=== PATIENT | male | born 1950 | race Caucasian/White ===

== ENCOUNTER → 2019-03-27 | Outpatient (CLI) | payer OTHER ==
[~2019-03-27] MED LIST: ADALAT PO; ASPIRIN 32325 MG/TAB PO; CRESTOR PO; FERROUS SU325 MG/TAB PO; FOLIC ACID 40400 MCG PO; HYDROCHLOROTHIAZIDE PO; INDERAL PO; VITAMIN C BUFF500 MG PO
== END ==
LOC: COL.RAD 10:59
DX: R91.1 Solitary pulmonary nodule (principal)
CPT/HCPCS: Q9967